=== PATIENT | female | born 1995 ===

== ENCOUNTER → 2016-11-09 | Outpatient (REF) | payer BC, OTHER ==
[2016-11-09 11:04] LABS: BASOPHILS % (AUTO) 0 % (0-2); EOSINOPHILS # (AUTO) 0.1 10^3uL; EOSINOPHILS % (AUTO) 1 % (0-4); LYMPHOCYTES # (AUTO) 3.2 X10^3; MEAN CORPUSCULAR HEMOGLOBIN 27.3 PG (26.0-34.0); MEAN PLATELET VOLUME 9.5 FL (6.0-9.5); MONOCYTES # (AUTO) 0.8 X10^3; MONOCYTES % (AUTO) 6 % (3-11); NEUTROPHILS # (AUTO) 8.4 X10^3; NEUTROPHILS % (AUTO) 67 % (51-67); PLATELET COUNT 304 10^3uL (150-450); WHITE BLOOD COUNT 12.67 10^3uL (4.0-11.0)
[2016-11-09 11:05] LABS: MEAN CORPUSCULAR VOLUME 78 FL (80-100)
[2016-11-09 11:14] LABS: ALBUMIN 4.3 g/dL (3.4-5.0); ANION GAP 15.4 MEQ/L (3-15); CALCULATED IONIZED CALCIUM 4.2 mg/dL (3.8-4.6); TOTAL PROTEIN 7.5 g/dL (6.4-8.5)
[2016-11-09 19:52] LABS: IRON 53 ug/dL (50-170); UNBOUND IRON CONTENT 346 ug/dl (126-382)
== END ==
LOC: LAB 10:54
PROVIDERS: ATTEND Family Medicine
DX: E11.9 Type 2 diabetes mellitus without complications (principal); D64.9 Anemia, unspecified; I10 Essential (primary) hypertension
CPT/HCPCS: 80053; 82306; 82728; 83036; 83540; 83550; 84443; 85025

== ENCOUNTER 2016-11-23 13:12 | Day surgery (SDC) | payer BC ==
[~2016-11-23] VITALS: Ht 165.1 cm; Wt 106.8 kg
[2016-11-23] VITALS (11 sets, daily range): BP systolic 122–179; BP diastolic 73–99
--- NOTE | 2016-11-23 11:37 | Diagnostic Imaging Report ---
PROCEDURE: CT of the abdomen with and without contrast and CT of the pelvis with contrast. TECHNIQUE: Precontrast acquisitions were acquired through the abdomen. Multiple contiguous axial images were obtained through the abdomen and pelvis after administration of intravenous contrast. INDICATION: Abdominal pain with nausea and emesis. FINDINGS: There is extensive low density throughout the majority of the liver with focal region of lower density in the central liver measuring 5 x 4.5 cm. There is also hyperdense focus near the falciform ligament in the medial segment of the left hepatic lobe which measures 3.3 x 2.1 cm. Gallbladder is unremarkable. There is no biliary ductal dilatation. No pancreatic, splenic or adrenal gland abnormality is identified. Kidneys are unremarkable. There is no evidence of abdominal ascites. The appendix is enlarged with mild diffuse surrounding edema and inflammation. Partially opacified urinary bladder is unremarkable. There is no evidence of periappendiceal abscess. IMPRESSION: Findings are consistent with acute appendicitis without CT evidence of perforation or abscess. There is also apparent geographic fatty infiltration of liver. Dictated by: Dictated on workstation # [id number]
[~2016-11-23 13:12] MED LIST changes: -ALBU8.5H6 INH; +BUPIVACAINE/EPINEPHRINE 0.5%-1:200,000 (MARCAINE) 30 ML VIAL INJ ONE; -CHOL200018 PO; -INSU100I14 SQ; -INSU200I4 SQ; -PREG150C PO; -ROPI0.5T4 PO
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
[2016-11-23] MEDS ORDERED: ceFAZolin 2,000 MG in SODIUM CHLORIDE VIAL (PF) 20 ML IV SCH (13:25)
[2016-11-23] MEDS ORDERED: CHOL200018 PO (13:54)
[2016-11-23] MEDS ORDERED: INSU100I14 SQ (13:54)
[2016-11-23] MEDS ORDERED: PREG150C PO (13:54)
[2016-11-23] MEDS ORDERED: ROPI0.5T4 PO (13:54)
[2016-11-23] MEDS ORDERED: INSU200I4 SQ (13:54)
[2016-11-23] MEDS: SODIUM CHLORIDE FLUSH 3 ML SYR IV PRN (13:56)
[2016-11-23] MEDS ORDERED: LACTATED RINGERS 1,000 ML IV SCH (14:30)
[2016-11-23] MEDS ORDERED: ALBUTEROL 0.5% NEB SOLUTION 2.5 MG/0.5 ML VIAL INH ONE (14:30)
[2016-11-23] MEDS ORDERED: ALBUTEROL 0.083% NEB SOLUTION 2.5 MG/3 ML VIAL INH ONE (14:50)
[2016-11-23] MEDS ORDERED: PROPOFOL 20 ML IV ONE (15:02)
[2016-11-23] MEDS ORDERED: ALFENTANIL 1,000 MCG/2 ML AMP IV ONE (15:02)
[2016-11-23] MEDS ORDERED: ONDANSETRON 2 MG/ML (Z0FRAN) 2 ML VIAL ONE (15:02)
[2016-11-23] MEDS ORDERED: SUCCINYLCHOLINE 20 MG/ML 10 ML VIAL ONE (15:02)
[2016-11-23] MEDS ORDERED: ROCURONIUM 50 MG/5 ML (ZEMURON) VIAL IV ONE (15:02)
[2016-11-23 15:26] LABS: BILIRUBIN,URINE Negative (Negative); CLARITY,URINE Clear; COLOR,URINE Yellow; GLUCOSE, URINE (UA) Negative (Negative); LEUKOCYTE ESTERASE, URINE Negative (Negative); PH,URINE 6.5 (5.0 - 8.0); UROBILINOGEN,URINE 0.2 mg/dL (0.2-1.0)
[2016-11-23] MEDS ORDERED: KETOROLAC 60 MG/2 ML (TORADOL) VIAL IM ONE (15:59)
[2016-11-23] MEDS ORDERED: GLYCOPYRROLATE 0.2 MG/ML (ROBINUL) 1 ML VIAL ONE (15:59)
[2016-11-23] MEDS ORDERED: NEOSTIGMINE 1 MG/ML SYRINGE ONE (15:59)
[2016-11-23] MEDS ORDERED: HYDROmorphone 1 MG/ML (DILAUDID) SYRINGE ONE (16:24)
--- NOTE | 2016-11-23 16:57 | NUR ---
Pt admitted to 305 via bed accompanied by OR RNs Heather and Florence. Pt alert, drowsy. at bedside. 3 lap incision drsgs clean, dry, intact. Gauze and tegaderm in place. Pt rates pain 3/10 at this time. Post op VS initiated. Skin warm, dry, intact. Resprs nonlabored, even on RA. Will continue to monitor.
[2016-11-23] MEDS ORDERED: ALBU8.5H6 INH (17:39)
[2016-11-23] MEDS ORDERED: METOCLOPRAMIDE 10 MG/2 ML (REGLAN) VIAL IV PRN (17:50)
[2016-11-23] MEDS ORDERED: morphine INJ 4 MG/ML 1 ML SYRINGE IV PRN (17:50)
--- NOTE | 2016-11-23 17:51 | NUR ---
MED REC COMPLETE--current med list obtained from external med history application and retail pharmacy ([facility]).
[2016-11-23] MEDS: ONDANSETRON 2 MG/ML (Z0FRAN) 2 ML VIAL IV PRN ×2 (18:18→23:44)
--- NOTE | 2016-11-23 18:28 | NUR ---
Pt rates pain 3/10. States she is "slightly nauseous" but states it was not brought on by her dinner tray, that she was nauseous before. PRN Ultram and Zofran given at this time. Pt states tramadol has made her itchy in the past. Denies hx of hives, states hydrocodone has made her itchy in the past as well. Will monitor closely. Pt asks "so am I staying the night then?". Informed pt of criteria that needs to be met to go home. Also informed pt we are in no hurry to discharge her. Pt denies other needs.
--- NOTE | 2016-11-23 19:42 | NUR ---
Pt is resting in bed, is at bedside. Alert and oriented x 4, Resp are even and nonlabored, LCTAB, HRRR, Bowel sounds are hypoactive x 4 quadrants. Has 3 dressings to abdomen, 1 to umbilicus, and below umbilical area has small dime size amount of serosanguineous drainage, dressing to right mid abdomen is clean, dry, and intact. Pt rates pain 4/10 at this time, denies need for pain medication at this time. Pt would like to stay overnight, this RN said that is fine, and asked if the would like a cot, or if he would be going home. He reports that he is unsure at this time. He has taken the prescriptions to [facility] to be filled. Pt denies needs at this time. Call light is in reach, will continue to monitor.
[2016-11-23] MEDS: ALBUTEROL 0.083% NEB SOLUTION 2.5 MG/3 ML VIAL INH SCH (19:57)
[2016-11-23] MEDS ORDERED: INSULIN GLARGINE 1 UNIT/0.01ML (LANTUS) DOSE SC SCH (21:00)
[2016-11-23] MEDS: KETOROLAC 30 MG/ML (TORADOL) 1 ML VIAL IV PRN (21:02)
[2016-11-24] MEDS: ALBUTEROL 0.083% NEB SOLUTION 2.5 MG/3 ML VIAL INH SCH ×3 (01:28→09:22)
--- NOTE | 2016-11-24 01:29 | NUR ---
Pt is laying in bed with head elevated, tolerated tx well, on room air- SPO2 94%
--- NOTE | 2016-11-24 04:46 | NUR ---
Pt is resting in bed, is asleep in cot, does not appear to be in pain or discomfort at this time. Will continue to monitor.
[2016-11-24] MEDS: SODIUM CHLORIDE FLUSH 3 ML SYR IV PRN (05:20)
[2016-11-24] MEDS: KETOROLAC 30 MG/ML (TORADOL) 1 ML VIAL IV PRN (05:20)
[2016-11-24 07:57] VITALS: BP 144/93
[2016-11-24] MEDS ORDERED: INSULIN LISPRO 1 UNIT/0.01 ML (HUMALOG) DOSE SC SCH (08:00)
[2016-11-24] MEDS: ONDANSETRON 2 MG/ML (Z0FRAN) 2 ML VIAL IV PRN (08:02)
--- NOTE | 2016-11-24 08:02 | NUR ---
PRN Ultram and Zofran given at this time for c/o nausea and incisional site pain. Pt states nausea was not brought on by breakfast, tolerated her med diab diet well. Isa in room.
--- NOTE | 2016-11-24 08:10 | Progress Note-A/P (E) ---
Progress Note Subjective Subjective Doing well. Eating breakfast this morning. BG was 270 earlier. Objective VS Vital Signs Date Time Temp Pulse Resp B/P Pulse Ox O2 Delivery O2 Flow Rate FiO2 11/24/16 07:57 144/93 95 Room air 11/23/16 23:59 98.0 107 18 I&O I & O Past 24 hrs 11/24/16 07:00 Intake Total 2137 ml Balance 2137 ml Intake Oral 2137 ml Current Medications Current Medications Tramadol HCl 50-100 MG Q6H PRN PO Last administered on 11/24/16 08:02; Admin Dose 100 MG; Start 11/23/16 at 17:50 Morphine Sulfate 1-4MG Q1H PRN IV; Start 11/23/16 at 17:50 Ketorolac Tromethamine 30 mg Q6H PRN IV Last administered on 11/24/16 05:20; Admin Dose 30 MG; Start 11/23/16 at 17:50; Stop 11/28/16 at 17:49 Ondansetron HCl 4 mg Q6H PRN IV Last administered on 11/24/16 08:02; Admin Dose 4 MG; Start 11/23/16 at 17:50 Metoclopramide HCl 10 mg Q6H PRN IV; Start 11/23/16 at 17:50 Albuterol Sulfate 2.5 mg RTQ6HR INH Last administered on 11/24/16 01:28; Admin Dose 2.5 MG; Start 11/23/16 at 17:47 Insulin Glargine 90 unit HS SC Last administered on 11/23/16 21:02; Admin Dose 90 UNIT; Start 11/23/16 at 21:00 Insulin Human Lispro 35 unit TIDWM SC Last administered on 11/24/16 08:02; Admin Dose 35 UNIT; Start 11/24/16 at 08:00 General Awake, alert. Neuro Grossly normal. Labs, Most Recent- Laboratory Results Past 24 Hrs 11/23/16 15:15: Urine Bilirubin Negative, Urine Blood Negative, Urine Clarity Clear, Urine Collection Type Catheter, Urine Color Yellow, Urine Glucose (UA) Negative, Urine Ketones Negative, Urine Leukocyte Esterase Negative, Urine Nitrite Negative, Urine Protein Negative, Urine Specific Ribera 1.015, Urine Urobilinogen 0.2, Urine pH 6.5 Assessment POD#1 lap appendectomy Plan DC home today with clinic follow-up. ANALI CONN MD Nov 24, 2016 08:10
--- NOTE | 2016-11-24 09:27 | NUR ---
Incision site drsgs changed. Umbilicus drsg was saturated. Instructed pt on changing drsgs. Discharge instructions reviewed with patient. Demonstrates understanding. SL removed with catheter tip intact. Pressure held. No redness or edema noted. Belongings gathered. Pt dismissed at this time via w/c accompanied by Madisyn Layne CNA and pt's to private vehicle. Skin warm, dry, intact. Resprs nonlabored, even. Belongings and DC packet sent with patient. Appreciative of cares.
--- NOTE | 2016-11-24 11:47 | OPERATIVE REPORT ---
DATE OF OPERATION: 11/23/2016 PRE-OPERATIVE DIAGNOSIS: Acute appendicitis. POST-OPERATIVE DIAGNOSIS: Acute appendicitis. OPERATIVE PROCEDURE: Laparoscopic appendectomy. SURGEON: Pineda Moss M.D. CLOTH DRIER: ARMAND Lara ANESTHESIA: General endotracheal anesthetic. INDICATIONS: Mrs. Abarca is a 21-year-old referred by Essie Sanchez with abdominal pain and clinical findings of appendicitis. She presents here for appendectomy. DESCRIPTION OF PROCEDURE: The patient was informed of the risks and benefits and agreed to proceed. She was taken to the operating room and placed supine on a standard operating table. She was administered preoperative antibiotics. She was then administered general endotracheal anesthetic. A Mcdermott catheter was placed for drainage of the bladder. Her abdomen was prepped and draped in standard sterile fashion. The open technique was used to access the peritoneal cavity through a curved linear incision above the umbilicus and 0-Vicryl stay sutures were placed in the fascia. A 10 mm port was inserted and CO2 was insufflated to 15 mmHg. A 5 mm 30 degree laparoscope was used. There was no purulent drainage in the abdominal cavity nor any significant inflammatory changes seen over the viscera. Under direct vision a suprapubic 5 mm port and a left lower quadrant 5 mm port were placed. The patient was placed in slight Trendelenburg position rotated to the left. The cecum was easily visualized and the appendix could be seen below the cecum inferiorly, easily accessible, edematous and inflamed. There was no evidence of suppuration or perforation. The cecum was mobilized from its attachments laterally with the laparoscopic scissors and the base of the appendix was exposed. The appendix was held anteriorly and blunt dissection was used to create a window between the base of the appendix and the mesoappendix with a [place] dissector. The camera was then moved to the left lower quadrant port and the laparoscopic stapler was used to transect and staple the mesoappendix with a vascular load. There was some slight oozing present that was easily controlled with gentle cautery at that staple line. The enteric load was then applied to the stapler and the stapler was used to staple and transect the base of the appendix. The appendix was removed using an Endobag under direct vision through the umbilical port site. Inspection of the staple line revealed hemostasis. We irrigated and aspirated the contents from the right lower quadrant. The pelvis was inspected and aspirated of its small amount of fluid. The lower trocars were then removed under direct vision and no bleeding was seen from the abdominal wall. The CO2 was let out of the abdomen and the umbilical port was removed. The Vicryl stay sutures were tied to secure the fascia at the umbilicus. The skin was then closed at all 3 incisions with subcuticular 4-0 Monocryl. Dressings were applied. The patient tolerated the procedure without complications. The catheter was removed from the bladder at the end of the procedure.
== END 2016-11-24 09:27 | disposition home or self-care (01) ==
LOC: ASC 13:12 → MED/SURG 15:25 → ASC 11-24 09:27
PROVIDERS: ATTEND Surgery
DX: K35.80 Unspecified acute appendicitis (principal); E11.9 Type 2 diabetes mellitus without complications; J45.909 Unspecified asthma, uncomplicated; Z79.4 Long term (current) use of insulin
CPT/HCPCS: 44970; 74178; 81003; 94640; J0330; J1170; J1815; J1885; J2405; J2710; J3490; J7030; J7613; Q9967; S0030

== ENCOUNTER → 2016-11-23 | Outpatient (REF) | payer BC ==
[~2016-11-23] MED LIST: ALBU8.5H6 INH; CHOL200018 PO; CPR500T PO; GLIP5TAB26 PO; GLUCOMETER MC; HYDR-3702 PO; INSU100I14 SQ; INSU100V2 SC; INSU100V5 SC; INSU200I4 SQ; LANC-956 IV; LISI2.5T PO; METF500T4 PO; NFD30TCR PO; NORG1TAB14 PO; NPH SC; ONDA-50 PO; OXYC1TAB87 PO; PREG150C PO; PRNMV1T PO; ROPI0.5T4 PO; TESTSTRIPS MC
[2016-11-23 09:39] LABS: BASOPHILS % (AUTO) 0 % (0-2); EOSINOPHILS # (AUTO) 0.1 10^3uL; EOSINOPHILS % (AUTO) 1 % (0-4); LYMPHOCYTES # (AUTO) 2.9 X10^3; MEAN CORPUSCULAR HEMOGLOBIN 27.2 PG (26.0-34.0); MEAN CORPUSCULAR HGB CONC 34.2 g/dL (31.0-37.0); MEAN CORPUSCULAR VOLUME 80 FL (80-100); MEAN PLATELET VOLUME 9.5 FL (6.0-9.5); MONOCYTES # (AUTO) 0.7 X10^3; MONOCYTES % (AUTO) 5 % (3-11); NEUTROPHILS # (AUTO) 9.6 X10^3; NEUTROPHILS % (AUTO) 72 % (51-67); PLATELET COUNT 282 10^3uL (150-450); WHITE BLOOD COUNT 13.33 10^3uL (4.0-11.0)
[2016-11-23 09:50] LABS: ALBUMIN 4.3 g/dL (3.4-5.0); ANION GAP 18.1 MEQ/L (3-15); CALCULATED IONIZED CALCIUM 4.2 mg/dL (3.8-4.6); TOTAL PROTEIN 7.3 g/dL (6.4-8.5)
[2016-11-23 09:51] LABS: HCG,QUALITATIVE URINE Negative (Negative)
[2016-11-23 10:11] LABS: URINE CENTRIFUGED VOLUME 12 mL
[2016-11-23 10:12] LABS: RBC,URINE 20-50 /HPF
== END ==
LOC: LAB 09:06
PROVIDERS: ATTEND Nurse Practitioner Family
DX: R10.9 Unspecified abdominal pain (principal)
CPT/HCPCS: 80053; 81015; 81025; 82150; 83690; 85025